=== PATIENT | male | born 1970 | race Caucasian/White ===

== ENCOUNTER 2017-12-27 09:57 | Day surgery (SDC) | payer BC ==
[~2017-12-27 09:57] MED LIST: Buffered Lidocaine 0.9% SYRIN* 5 ML/SYR SYRINGE INTRADERM ONE; Levalbuterol 0.63MG/3ML NEB* UNIT OF USE INH ONE; Sodium Citrate/Citric Acid* 15 ML UDC PO ONE
[2017-12-27] MEDS ORDERED: Sodium Citrate/Citric Acid* 15 ML UDC ONE (10:09)
[2017-12-27] MEDS ORDERED: Levalbuterol 0.63MG/3ML NEB* UNIT OF USE INH ONE (10:09)
[2017-12-27] MEDS ORDERED: Buffered Lidocaine 0.9% SYRIN* 5 ML/SYR SYRINGE ONE (10:09)
[2017-12-27] MEDS ORDERED: Lidocaine 4% TOPICAL* 50 ML TOP.SOLN ONE (11:33)
[2017-12-27] MEDS ORDERED: Oxymetazoline 0.05% NASAL SPR* 15 ML BTL ONE (11:33)
[2017-12-27] MEDS ORDERED: Lidocain 1% EPI 1:100,000 * 30 ML MDV ONE (11:33)
[2017-12-27] MEDS ORDERED: Propofol* 10 MG/ML 20 ML BTL IV PUSH ONE (11:53)
[2017-12-27] MEDS ORDERED: fentaNYL* 50 MCG/ML 2 ML VIAL (100 MCG VIAL) ONE (11:53)
[2017-12-27] MEDS ORDERED: Dexamethasone IV* 4 MG/ML 1 ML (4 MG) ONE (11:53)
[2017-12-27] MEDS ORDERED: Lidocaine 2% PF * 5 ML VIAL ONE (11:54)
[2017-12-27] MEDS ORDERED: Succinylcholine* 20 MG/ML 10 ML VIAL ONE (12:19)
[2017-12-27] MEDS ORDERED: EPINEPHRINE 1 MG/ML 1 ML VIAL ONE ×2 (12:37→12:50)
[2017-12-27] MEDS ORDERED: Triamcinolone Acetonide* 40 MG/ML 1 ML VIAL ONE (12:46)
[2017-12-27] MEDS ORDERED: Naloxone* 0.4 MG/ML 1 ML VIAL IV PRN (12:52)
[2017-12-27] MEDS ORDERED: Ondansetron INJ* 2 MG/ML VIAL IV PRN (12:52)
[2017-12-27] MEDS ORDERED: fentaNYL* 50 MCG/ML 2 ML VIAL (100 MCG VIAL) IV PRN (12:52)
[2017-12-27] MEDS ORDERED: hydrALAZINE IV* 20 MG/ML VIAL ONE (13:56)
[2017-12-27 14:54] VITALS: BP 159/100
--- NOTE | 2017-12-28 06:08 | OP ---
DATE OF OPERATION: 12/27/17 - SDS DATE OF : 66 SURGEON: Jaziel Martin MD ANESTHESIA: General endotracheal anesthesia. PRE-OP DIAGNOSES: Chronic maxillary ethmoidal sinusitis, nasal polyposis. POST-OP DIAGNOSES: Chronic maxillary ethmoidal sinusitis, nasal polyposis. OPERATIVE PROCEDURE: Bilateral endoscopic sinus surgery using the image guidance with maxillary antrostomies with debridement of polyps, anterior and posterior ethmoidectomies. COMPLICATIONS: None. DISPOSITION: Good. SPECIMENS: Left and right sinus contents and polyps. DESCRIPTION OF PROCEDURE: The patient was taken to the operating room and placed in the supine position on the operating table. General anesthesia was induced. He was orotracheally intubated. Nose was packed with cottonoids impregnated with oxymetazoline and 4% lidocaine. These were used throughout the case as were as cottonoids impregnated with 1:100,000 epinephrine. He was registered to the image guided system and these instruments were used during the case for localization of operative sites. The surgery was done similarly bilaterally. His ostiomeatal units were packed with polyps protruding in the nasal cavity. These were injected with 1% lidocaine with 1:100,000 epinephrine throughout the case. Further injections were made into the root of the middle turbinate and ethmoids as I exposed these areas using my [employer]akesley debrider, seeker, and registered instrumentation. I debrided the polyps, wide in the maxillary ostium, pulled polyps and debrided polyps out of the maxillary sinuses , out of the anterior and posterior ethmoids. At the end of the case, Stammberger Sinu-Foam was mixed with Kenalog and placed bilaterally. The patient tolerated this procedure well, no complications, extubated uneventfully , and transferred to the recovery room in stable condition. [id number]/[facility] #: [id number] [facility]OS[facility]ITALErika
== END 2017-12-27 15:33 | disposition home or self-care (01) ==
LOC: OR 09:57
PROVIDERS: ATTEND Otolaryngology
DX: J32.8 Other chronic sinusitis (principal); J33.8 Other polyp of sinus; E78.5 Hyperlipidemia, unspecified; I34.0 Nonrheumatic mitral (valve) insufficiency; I10 Essential (primary) hypertension; R73.03 Prediabetes
CPT/HCPCS: 88305; A9270-GY; J0330; J0360; J1100; J2704; J3010; J3301

== ENCOUNTER 2018-11-25 18:01 | Emergency (ER) | payer BC ==
[2018-11-25] MEDS ORDERED: oxyCODONE/Acetamin 5/325 MG* TAB PO ONE (21:56)
[2018-11-25] MEDS ORDERED: Tetan/Diph/Pertus SYR(Tdap)* 0.5 ML SYR(BOOSTRIX) use SYR IM ONE (21:56)
--- NOTE | 2018-11-25 22:45 | ED ---
Skin Complaint - HPI Summary HPI Summary: This pt is a 48 Y/O M presenting to [facility] accompanied by his with a CC of a laceration to his posterior hand while cleaning a calender runner blade SENSITIZED PAPER TESTER. He states that the pain is currently a 6/10 in severity. He states that he has issues with extension of his 3rd digit. He states that he currently has decreased pain since the onset. He denies any aggravating symptoms but stated that rest has alleviated his symptoms. He has no pertinent medical history. - History of Current Complaint Chief Complaint: EDLacSutureRecheck Time Seen by Provider: 11/25/18 21:14 Stated Complaint: HAND LAC PER PT Hx Obtained From: Patient Onset/Duration: Started Hours Ago - SENSITIZED PAPER TESTER, Still Present Skin Exposure Onset/Duration: Hours Ago Timing: Constant Onset Severity: Severe Current Severity: Moderate Pain Intensity: 6 Pain Scale Used: 0-10 Numeric Skin Location: Hand - posterior aspect, 3rd digit Aggravating Symptom(s): Other: - mower blade Alleviating Symptom(s): Other: - rest Associated Signs & Symptoms: Negative - swelling, fevers, chills, headaches, weakness, decreased sensations, and tingling., Tenderness Related History: Trauma - cut by a calender runner blade - Allergy/Home Medications Allergies/Adverse Reactions: Allergies Allergy/AdvReac Type Severity Reaction Status Date / Time bacitracin Allergy Swelling Verified 08/21/18 13:38 [From Neosporin ([id number])] zafirlukast [From Accolate] Allergy Altered Verified 12/27/17 10:16 Mental Status Home Medications: Home Medications Clindamycin HCl 150 mg PO QID 11/25/18 [History Confirmed 11/25/18] PMH/Surg Hx/FS Hx/Imm Hx Previously Healthy: Yes Endocrine/Hematology History: Reports: Hx Diabetes - borderline at one point Cardiovascular History: Reports: Hx Angina, Hx Hypercholesterolemia, Hx Hypertension - controlled without med, Hx Valvular Heart Disease - "leaky valve " Denies: Hx Coronary Artery Disease, Hx Myocardial Infarction Respiratory History: Reports: Hx Asthma, Other Respiratory Problems/Disorders - chronic sinusitis Denies: Hx Chronic Obstructive Pulmonary Disease (COPD) GI History: Reports: Hx Gastroesophageal Reflux Disease - stopped taking med Sensory History: Reports: Hx Cataracts - left eye, Hx Contacts or Glasses - glasses Opthamlomology History: Reports: Hx Cataracts - left eye, Hx Contacts or Glasses - glasses - Surgical History Surgery Procedure, Year, and Place: lens left eye ([facility]) Hx Anesthesia Reactions: No - Immunization History Date of Tetanus Vaccine: unknown Infectious Disease History: No Infectious Disease History: Denies: Hx Clostridium Difficile, Hx Hepatitis, Hx Human Immunodeficiency Virus (HIV), Hx of Known/Suspected MRSA, Hx Shingles, Hx Tuberculosis, Hx Known/ Suspected VRE, Hx Known/Suspected VRSA, History Other Infectious Disease, Traveled Outside the [place] in Last 30 Days - Family History Known Family History: Positive: Other - CVA Negative: Cardiac Disease, Hypertension, Diabetes - Social History Alcohol Use: Daily Alcohol Amount: 1 a night Substance Use Type: Reports: None Smoking Status (MU): Never Smoked Tobacco Review of Systems Negative: Fever, Chills Skin: Other - laceration to his posterior hand Negative: Headache, Weakness, Numbness All Other Systems Reviewed And Are Negative: Yes Physical Exam - Summary Physical Exam Summary: Constitutional: Well-developed, Well-nourished, Alert. (-) Distressed Skin: Warm, Dry, 2cm cresent shaped laceration, which is not jagged, overlying the dorsal aspect of the mcp of the R 3rd digit, Wound seems to be clean. No active bleeding. HENT: Normocephalic; Atraumatic Eyes: Conjunctiva normal Neck: Musculoskeletal ROM normal neck. (-) JVD, (-) Stridor, (-) Nuchal rigidity Cardio: Rhythm regular, rate normal, Heart sounds normal; Intact distal pulses; Radial pulses are 2+ and symmetric. (-) Murmur Pulmonary/Chest wall: Effort normal. (-) Respiratory distress, (-) Wheezes, (-) Rales Abd: Soft, (-) tenderness, (-) Distension, (-) Guarding, (-) Rebound Musculoskeletal: (-) Edema, full strength flexion and extension of his R hand Lymph: (-) Cervical adenopathy Neuro: Alert, Oriented x3 Psych: Mood and affect Normal Triage Information Reviewed: Yes Vital Signs On Initial Exam: Initial Vitals Temp Pulse Resp BP Pulse Ox 97.9 F 82 16 151/86 96 11/25/18 18:22 11/25/18 18:22 11/25/18 18:22 11/25/18 18:22 11/25/18 18:22 Vital Signs Reviewed: Yes Procedures - Laceration/Wound Repair 1 Location: upper extremity - Right hand Description: Irregular - cresent Anesthesia: Lido Length, Depth and Shape: 2 cms Betadine Prep?: No Laceration/Wound Explored: clean Suture Type: Prolene - 5.0 Number of Sutures: 3 Layer Closure?: Yes Sterile Dressing Applied?: No Diagnostics - Vital Signs Vital Signs Temp Pulse Resp BP Pulse Ox 11/25/18 22:08 18 11/25/18 20:29 98.4 F 70 18 157/104 97 11/25/18 18:22 97.9 F 82 16 151/86 96 - Laboratory Lab Statement: Any lab studies that have been ordered have been reviewed, and results considered in the medical decision making process. - Radiology Hand X-Ray Radiology Interpretation Completed By: Radiologist Summary of Radiographic Findings: No fraactures or breaks noted. Pending offical review. Course/Dx - Course Course Of Treatment: This pt is a 48 Y/O M presenting to [facility] accompanied by his with a CC of a laceration to his posterior hand while cleaning a calender runner blade SENSITIZED PAPER TESTER. The following was found on his PE: 2cm cresent shaped laceration, which is not jagged, overlying the dorsal aspect of the mcp of the R 3rd digit, Wound seems to be clean, no bleeding, normal strength in flexion and extension, no weakness noted. His hand x-ray showed no fratures or breaks. The wound was closed with 3 5.0 Prolene sutures with good approximation to the laceration. Pt will be discharged home with a Dx of a right hand laceration. He will be instructed to have the stiches removed in 10 days. - Diagnoses Provider Diagnoses: Laceration of right hand Discharge ED - Sign-Out/Discharge Documenting (check all that apply): Patient Departure - discharge Patient Received Moderate/Deep Sedation with Procedure: No - Discharge Plan Condition: Improved Disposition: HOME Patient Education Materials: Laceration (ED) Referrals: Trenton Almaguer MD [Primary Care Provider] - Additional Instructions: suture removal in 7-9 days - Billing Disposition and Condition Condition: IMPROVED Disposition: Home - Attestation Statements Document Initiated by Scribe: Yes Documenting Scribe: Rob Rowan Provider For Whom Scribe is Documenting (Include Credential): Johan Mcfarlane MD Scribe Attestation: I, Rob Rowan, scribed for Johan Mcfarlane MD on 11/26/18 at 0752. Scribe Documentation Reviewed: Yes Provider Attestation: The documentation as recorded by the scribeRob accurately reflects the service I personally performed and the decisions made by me, Johan Mcfarlane MD Status of Scribe Document: Viewed
[2018-11-25 23:11] VITALS: BP 116/81
== END 2018-11-25 23:13 | disposition home or self-care (01) ==
LOC: ED 18:01
DX: S61.411A Laceration without foreign body of right hand, initial encounter (principal); W26.9XXA Contact with unspecified sharp object(s), initial encounter; Y92.9 Unspecified place or not applicable; R73.03 Prediabetes; E78.00 Pure hypercholesterolemia, unspecified; I10 Essential (primary) hypertension
CPT/HCPCS: 12001; 90471; 90715; 99283; A9270-GY

== ENCOUNTER 2018-12-25 19:02 | Emergency (ER) | payer BC ==
--- NOTE | 2018-12-25 19:34 | UC ---
Hand/Wrist HPI - HPI Summary HPI Summary: 48 yo with laceration to the right hand on a manager of sustainability blade on 11/25/18; [place] [facility] [place], reviewed chart. --approx 2 days later, he was treated with an antibiotic due to wound infection. Over the past month, he also took a second course of antibiotics and a short course of prednisone to treat bronchitis. Treated augmentin initially and then clarithromycin on 12/08/18. Because he could not fully extend the third digit at the MCP joint post injury, he began PT at today. At 8 am, PT manipulated and massaged the finger. Did a normal but non-demanding workday. Approx at 3 pm he because aware of increasing swelling and erythema of the MCP joint, with more pain than at the time of the initial injury. - History Of Current Complaint Chief Complaint: UCUpperExtremity Stated Complaint: R HAND PAIN Time Seen by Provider: 12/25/18 19:11 Hx Obtained From: Patient Onset/Duration: Gradual Onset, Lasting Hours Severity Initially: Moderate Severity Currently: Moderate Pain Intensity: 8 Character Of Pain: Aching Aggravating Factor(s): Movement Alleviating Factor(s): Nothing, OTC Meds - took 4 acetmaminophe 2 at 16:00 and 2 at 18:00 without relief. Associated Signs And Symptoms: Positive: Swelling, Redness - Allergies/Home Medications Allergies/Adverse Reactions: Allergies Allergy/AdvReac Type Severity Reaction Status Date / Time bacitracin Allergy Swelling Verified 12/25/18 19:15 [From Neosporin ([id number])] zafirlukast [From Accolate] Allergy Altered Verified 12/25/18 19:15 Mental Status PMH/Surg Hx/FS Hx/Imm Hx Previously Healthy: Yes Cardiovascular History: Other - denies hypertension, but record shows hx of elevated BP - Surgical History Surgical History: Yes Surgery Procedure, Year, and Place: lens left eye ([facility]) - Family History Known Family History: Positive: Other - CVA Negative: Cardiac Disease, Hypertension, Diabetes - Social History Occupation: Employed Full-time Lives: With Family Alcohol Use: Daily Alcohol Amount: 1 a night Substance Use Type: None Smoking Status (MU): Never Smoked Tobacco - Immunization History Most Recent Influenza Vaccination: 2014 Review of Systems All Other Systems Reviewed And Are Negative: Yes Constitutional: Positive: Negative Skin: Positive: Negative ENT: Positive: Negative Respiratory: Positive: Negative Cardiovascular: Positive: Other - sees cardiology for monitoring "leaky valve", no dx of hypertensio but BP's can be up to 150's at MD visits Gastrointestinal: Positive: Negative Motor: Positive: Decreased ROM Neurovascular: Positive: Negative Musculoskeletal: Positive: Arthralgia Is Patient Immunocompromised?: No Physical Exam Triage Information Reviewed: Yes Appearance: Well-Appearing, Well-Nourished, Pain Distress - moderate. Vital Signs: Initial Vital Signs Temp 98.4 F 12/25/18 19:06 Pulse 82 12/25/18 19:06 Resp 16 12/25/18 19:06 BP 176/109 12/25/18 19:06 Pulse Ox 98 12/25/18 19:06 Eye Exam: Other - KATIE, no photophobia, fundi normal without flame hemorrhages. Eyes: Positive: Conjunctiva Clear ENT: Positive: Normal ENT inspection Respiratory: Positive: Lungs clear, Normal breath sounds Cardiovascular: Positive: RRR, No Murmur - did not appreciate a murmur with exam in seated position. Musculoskeletal Exam: Other - rght hand with 5 x 3 cm area of swelling from MCP joint to the wrist. 1.5 cm of erythema around the scar. Pain with passive extension of the third mcp joint Musculoskeletal: Positive: ROM Limited @ - right third mcp joint, Other: - ful rom in wrist, no swelling. No forearm pain. Neurological Exam: Normal Neurological: Positive: Alert, Muscle Tone Normal, Other: Hand/Wrist Course/Dx - Course Course Of Treatment: Needs follow up BP tomorrow. Soak hand, tramadol for pain, sling for support. refer to hand surgeon. - Differential Dx/Diagnosis Differential Diagnosis/HQI/PQRI: Cellulitis, Sprain, Strain Provider Diagnosis: Tendon adhesions Discharge ED - Sign-Out/Discharge Documenting (check all that apply): Patient Departure All imaging exams completed and their final reports reviewed: No Studies - Discharge Plan Condition: Stable Disposition: HOME Patient Education Materials: Tenosynovitis (ED) Referrals: Trenton Almaguer MD [Primary Care Provider] - Trenton Recio MD [Medical Doctor] - Additional Instructions: Your blood pressure is elevated, and you will have a recheck of blood pressure tomorrow at [facility]. Use tramadol before bed for pain. Once at home, soak the right hand in warm water and salt or Epsom salts. You have a referral to hand surgery to assess the change in function of the tendon since your laceration. Use acetaminophen for pain, to a max dose of 3000mg per day. Check your home dose. Soak your hand for 15 to 20 minutes at least 3 times per day. - Billing Disposition and Condition Condition: STABLE Disposition: Home
[2018-12-25 19:52] VITALS: BP 180/108
[2018-12-25] MEDS ORDERED: traMADol TAB* 50 MG PO ONE (20:02)
== END 2018-12-25 20:28 | disposition home or self-care (01) ==
LOC: UCEAST 19:02
DX: M67.843 Other specified disorders of tendon, right hand (principal); R03.0 Elevated blood-pressure reading, without diagnosis of hypertension; Z88.3 Allergy status to other anti-infective agents
CPT/HCPCS: 99213; A9270-GY; G0463

== ENCOUNTER → 2019-02-02 08:38 | Day surgery (SDC) | payer BC ==
[~2019-02-02 08:38] MED LIST changes: -Buffered Lidocaine 0.9% SYRIN* 5 ML/SYR SYRINGE INTRADERM ONE; +Buffered Lidocaine 1% SYRIN* 1 ML/SYRINGE INTRADERM ONE; +Bupivacaine 0.25% SDV PF* 10 ML VIAL INJ ONE; +Dexamethasone IV* 4 MG/ML 1 ML (4 MG) IV SLOW PU ONE; +Dexamethasone IV* 4 MG/ML 1 ML (4 MG) ONE; +DiMENhydriNATE IV* 50 MG/ML VIAL IV PUSH PRN; +Famotidine IV* 10 MG/ML 2 ML (20 mg) IV ONE; +Famotidine IV* 10 MG/ML 2 ML (20 mg) ONE; +HYDROcodone/ACETAMIN 5-325 MG* 1 TAB PO PRN; +Ketorolac INJ* 30 MG/ML 1 ML VIAL ONE; +Lactated Ringers 1000 ML Bag* 1,000 ML IV SCH; -Levalbuterol 0.63MG/3ML NEB* UNIT OF USE INH ONE; +Lidocaine 2% PF * 5 ML VIAL ONE; +Midazolam* 1 MG/ML 5 ML VIAL (5 MG) ONE; +Naloxone* 0.4 MG/ML 1 ML VIAL IV PRN; +Ondansetron INJ* 2 MG/ML VIAL ONE; +Phenylephrine 40 MCG/ML SYRINGE ONE; +Propofol* 10 MG/ML 20 ML BTL ONE; -Sodium Citrate/Citric Acid* 15 ML UDC PO ONE; +ceFAZolin 2 GM in NS PREMIX(*) 2 GM/100 ML BAG IVPB ONE; +fentaNYL* 50 MCG/ML 2 ML VIAL (100 MCG VIAL) ONE; +oxyCODONE/Acetamin 5/325 MG* TAB ONE; +oxyCODONE/Acetamin 5/325 MG* TAB PO PRN
[2019-02-02] MEDS: fentaNYL* 50 MCG/ML 2 ML VIAL (100 MCG VIAL) IV PRN ×2 (13:08→13:22)
[2019-02-02 14:10] VITALS: BP 148/74
--- NOTE | 2019-02-02 21:05 | OP ---
DATE OF OPERATION: 02/02/19 - [facility] DATE OF : 66 SURGEON: Trenton Recio MD STATIONARY ENGINEER APPRENTICE: TEX Guaman ANESTHESIOLOGIST: Dr. Ortez. ANESTHESIA: General. PRE-OP DIAGNOSIS: Right middle finger subacute to chronic extensor tendon laceration over the MCP joint. POST-OP DIAGNOSIS: Right middle finger subacute to chronic extensor tendon laceration over the MCP joint. OPERATIVE PROCEDURE: Repair of right middle finger extensor tendon at the level of the MCP joint. INDICATIONS: Mr. Norton had the tendon laceration. He has loosened up. He has a lag at that MCP joint of about 30 to 40 degrees. We had talked about options. He wanted to proceed with surgery. ESTIMATED BLOOD LOSS: 2 mL. COMPLICATIONS: None. FINDINGS: See above and below. DESCRIPTION OF PROCEDURE: Mr. Norton was seen in the preoperative holding area. The correct site, side, and procedure were identified. We came back to the operating room where the arm was prepped and draped in the usual fashion and a time-out was performed. I extended his traumatic wound proximally and distally. Dissection was carried down. I had thought that we would probably need to transfer the EIP to the tendon there; but actually, after I opened it up, I noted it was only about a centimeter retracted and so I went ahead and used a [place] blade to clean up all the degenerative tissue at the edges and debride the whole sheath area where the tendon ought to go. Once I had nice smooth edges and had everything nice and loosened up, I went ahead and performed a 6-strand core suture for the repair. This was done with a 3-0 Ethibond suture. I augmented this with multiple 4-0 [id number] PDS sutures. At this point, the repair was looking very good. The joint sat slightly more extended than all the other fingers. The wound was irrigated out. Skin was closed with 4-0 nylon suture. A splint was applied holding the MCP joint in extension. He was taken to the recovery room in stable condition. [id number]/[facility] #: [id number] VICENTE
== END | disposition home or self-care (01) ==
LOC: OR 08:38
PROVIDERS: ATTEND Orthopaedic Surgery Hand Surgery
DX: S66.322A Laceration of extensor muscle, fascia and tendon of right middle finger at wrist and hand level, initial encounter (principal); W31.89XA Contact with other specified machinery, initial encounter; Y92.9 Unspecified place or not applicable; I10 Essential (primary) hypertension; E78.5 Hyperlipidemia, unspecified; J45.909 Unspecified asthma, uncomplicated; I08.1 Rheumatic disorders of both mitral and tricuspid valves; R60.9 Edema, unspecified
CPT/HCPCS: A9270-GY; J0690; J1100; J1885; J2250; J2405; J2704; J3010; J3490